=== PATIENT | male | born 1930 | race Two or more races ===

== ENCOUNTER 2016-12-19 17:30 | Inpatient (IN) | payer MEDICARE, OTHER ==
[~2016-12-19] VITALS: Ht 162.6 cm; Wt 78.0 kg
--- NOTE | ~2016-12-19 | OR ---
PATIENT'S NAME: ANAYELI CARRION [facility] AGE: 86 Y [address] ROOM: [facility] [place] [address] LOCATION: GPCU ADMIT DATE: 12/19/2016 OR/Procedure Report DISCHARGE DATE: FAMILY PHYSICIAN: John Hopkins PA-C ATTENDING PHYSICIAN: GLORIA VENTURA SURGEON: Denys Iniguez DO POTATO PANCAKE FRIER: DATE OF PROCEDURE: 12/21/2016 PREOPERATIVE DIAGNOSIS: Sinus bradycardia with second-degree heart block, Mobitz type 2 and ventricular pauses 3.8 seconds. POSTOPERATIVE DIAGNOSIS: Sinus bradycardia with second-degree heart block, Mobitz type 2 and ventricular pauses 3.8 seconds. PROCEDURES PERFORMED: Placement of dual-chamber permanent pacemaker via the left subclavian vein. REFERRING PHYSICIAN: Isidro Kitchen MD. BRIEF HISTORY: Mr. Carrion is an 86-year-old male with the above- noted diagnosis. He has been brought to the operative suite today after an informed consent was obtained for this device. Anterior chest wall was sterilely prepped and draped. After appropriate IV sedation was achieved, 1% lidocaine was used to infiltrate the left infraclavicular space and with the patient in Trendelenburg position, the subclavian vein was accessed x2 and guidewires placed under fluoroscopic guidance into the right atrium. An incision was created and a pocket was formed. Electrocautery was used for hemostasis and pocket formation. Guidewires were brought through the incision via sheath and dilator assembly, we placed our leads. We began with our right ventricular lead. It is a [employer] Lumicell MRI, model 7741, serial #[id number] placed in the right ventricular floor, sensing R-waves of 8.9 with a measured threshold of 0.4 V at 0.5 milliseconds with pacing impedance of 818 ohms. In a similar fashion, we placed our atrial lead, also a [employer] Lumicell MRI, model 7740, serial #[id number] placed in the right atrial appendage, sensing P-waves of 4.7 with a measured threshold of 0.9 V at 0.5 milliseconds with pacing impedance of 598 ohms. Each lead was then connected to the generator which is a [employer] Style[employer] Essentio, model L111, serial #[id number]. Leads and generator placed into the pocket. The patient was paced DDDR with a lower rate limit of 60 and maximal tracking rate of 120. Incision was closed in a layered fashion with 2- 0 Vicryl and 4-0 Monocryl, and a pressure dressing was applied. The patient tolerated the procedure well. PATIENT'S NAME: ANAYELI CARRION [facility] AGE: 86 Y [address] ROOM: [place] [address] [facility] AD[facility] DATE: 12/19/2016 OR/Procedure Report DISCHARGE DATE: FAMILY PHYSICIAN: John Hopkins PA-C ATTENDING PHYSICIAN: GLORIA VENTURA DO MICHELET ARAYA/baljinder /[id number] d: 12/21/16 1504 t: 12/22/16 1424, OPERATIVE SUMMARY
--- NOTE | ~2016-12-19 | CON ---
[facility] 86 Y [address] ROOM: [address] [place], [place] [address] LOCATION: GPCU ADMIT DATE: 12/19/2016 Consultation DISCHARGE DATE: FAMILY PHYSICIAN: PHYSICIAN, UNKNOWN ATTENDING PHYSICIAN: GLORIA VENTURA REFERRING PHYSICIAN: Juni Neves REQUESTING PHYSICIAN: Jess Whitman MD. REASON FOR CONSULTATION: Elevated cardiac enzymes. HISTORY OF PRESENT ILLNESS: The patient is an 86-year-old gentleman who was transferred yesterday from [place]. He presented there after undergoing hemodialysis in [place]. The patient did not feel well. He was hypotensive with systolic pressure around 80. He was experienced substernal chest pain, radiating to the back. He was also short of breath. The patient received a fluid bolus without much improvement, and once the troponin found to be elevated, he was transferred here for higher level of care. I obtained history from the patient and his granddaughter, but apparently they are not very well informed. Also read the report from the hospitalist staff and the emergency room physician in [place]. Mr. Carrion had a transcatheter aortic valve replacement in October 2015 at [place]. It is also reported that he has multiple coronary interventions, although his family could not give me any information about that. His ejection fraction is unknown. On our packer sausage and wiener here, he was found to have intermittent high-degree atrioventricular block with at least three non-conducted P-waves recorded. His daughter did report that back in September at some point, her father was also very sick and briefly unconscious and could not attend the graduation of his grandson. It is also reported in the medical record that he has atrial fibrillation and probably for this reason he is anticoagulated with warfarin. MEDICATIONS: The remaining outpatient medications include, 1. Lipitor 40 mg daily. 2. Protonix 40 mg daily. 3. Allopurinol 100 mg two tablets daily. 4. He is also on aspirin 81 mg daily and cetirizine 10 mg daily. 5. Also on omeprazole 20 mg daily and tamsulosin 0.4 mg daily. PAST SURGICAL HISTORY: Reported hernia repair. SOCIAL HISTORY: The patient is . Lives with his . Never smoked. Does not drink PATIENT'S NAME: CARRION, [facility] AGE: 86 Y [address] ROOM: [facility] [place] [address] [facility] AD[facility] DATE: 12/19/2016 Consultation DISCHARGE DATE: FAMILY PHYSICIAN: PHYSICIAN, UNKNOWN ATTENDING PHYSICIAN: GLORIA VENTURA any alcohol. FAMILY HISTORY: Noncontributory. PHYSICAL EXAMINATION: GENERAL: Pleasant elderly gentleman, alert and oriented. Able to communicate in [place]. VITAL SIGNS: His height is 5 feet 4 inches, weight is 78.6 kg, blood pressure 145/67, pulse 74. SKIN: Warm and dry. HEAD: Normocephalic and atraumatic. NECK: There are bilateral carotid bruits. HEART: Has regular first second heart sounds. LUNGS: Some rhonchi and wheezes. ABDOMEN: Obese, nontender. LOWER EXTREMITIES: Trace peripheral edema 2+, dorsalis pedis pulses. DIAGNOSTIC STUDIES: Electrocardiogram shows sinus rhythm, right bundle-branch block. Electrocardiogram yesterday at 3:40 p.m., the patient was at that point in atrial fibrillation with a rate of 118. He had converted by the time he reached [place]. Procalcitonin 0.09. CK-MB 5.3 and 1.1 troponin; repeat CK- MB 6.2 and troponin 1.6. Potassium is 4.5, BUN 58, creatinine 5.4. WBC 6.7, hemoglobin 10.3, hematocrit 29.3, and platelets 149. IMPRESSION: 1. Non-ST elevation myocardial infarction. 2. Intermitted Mobitz II heart block, symptomatic. 3. Status post TAVR. 4. History of multiple coronary interventions. 5. Dyspnea, possible heart failure. 6. End-stage renal disease. 7. History of systemic hypertension but becomes hypotensive with hemodialysis. PLAN: I will obtain the old records from [place] and I will proceed with coronary angiography and percutaneous intervention as needed. We will proceed with coronary angiography and the patient also will need a permanent dual-chamber pacemaker. Risks, benefits, and alternatives were discussed with him, his , and his granddaughter, and they are willing to proceed. Thank you for allowing me to participate in the care of Mr. Carrion. PATIENT'S NAME: ANAYELI CARRION [facility] AGE: 86 Y [address] ROOM: G6[address] [place], [place] [address] LOCATION: [facility] ADMIT DATE: 12/19/2016 Consultation DISCHARGE DATE: FAMILY PHYSICIAN: PHYSICIAN, NATE ATTENDING PHYSICIAN: GLORIA VENTURA JONATHAN BRANDT MD PE/baljinder /[id number] d: 12/20/16 1123 t: 12/21/16 0847, CONSULTATION REPORT
--- NOTE | ~2016-12-19 | CATH ---
Cardiac Diagnostic + PCI Report Demographics Patient Name MURALI Chopra Gender Male Date of 1930 Age 86 year(s) Patient Number [id number] Date of Study 12/20/2016 Visit Number [id number] Room Number G6[address] [place] [id number] Ht 162.56 cm Wt 78.47 kg Referring Efstratiou Primary Physician Physician Jeremy Aguilar MD Performing Efstratiou Secondary Physician Physician Jeremy Aguilar MD Diagnostic Efstratiou Assisting Physician Physician Jeremy Aguilar MD Interventional Efstratiou Physician Mother Superior Physician Jeremy Aguilar MD Findings and Conclusions Diagnostic Findings and Conclusion Previous proximal LAD stent is patent Severe stenosis in OM2 Moderate diffuse 3 vessel CAD Diagnostic Recommendations PCI to OM2 Interventional Findings and Conclusion Successful ROSIO to OM2 Interventional Recommendations Procedure Description The patient was brought to the diagnostic cardiac catheterization-EP laboratory in the fasting, non-sedated state. Informed consent was obtained in the written and verbal form after the risks and benefits were explained. The patient had no further questions and agreed to proceed. The planned puncture-incision site(s) were shaved and prepped with ChloraPrep and draped in the usual sterile manner. Conscious sedation, supplemental oxygen, and pain control medications were delivered by a registered nurse under physician guidance. Surface ECG rhythm, blood pressure measurement, and pulse oximetry were monitored throughout the procedure. Arterial access. The access site was infiltrated with lidocaine. The vessel was entered with the Seldinger technique. A sheath was advanced into the vessel and used for catheter placement. Selective left coronary angiography. A catheter was advanced into the left coronary vessel ostium under Fluoroscopic guidance. Contrast was injected by hand. Images were obtained in multiple projections. Selective right coronary angiography. A catheter was advanced into the right coronary vessel ostium under fluoroscopic guidance. Contrast was injected by hand. Images were obtained in multiple projections. Stent Placement: A guiding catheter was used to intubate the vessel. A 0.14 wire was used to cross the lesion. A Drug Eluting Stent was placed. Post placement angiograms were performed. Arterial artery hemostasis was achieved. The patient was transferred to a regular nursing floor via cart accompanied by a nurse. The patient left the laboratory in stable condition. Diagnostic Cath Status: Urgent Interventional Cath Status: Urgent Procedure Procedure Type Diagnostic procedure:Angiography:, Coronary Angios w/LHC PCI procedure:Drug Eluting Coronary Stent:, OM Indications: NSTEMI. The procedure was explained in detail to the patient. Risks, complications and alternative treatments were reviewed. Written consent was obtained. Medications Reviewed with Patient prior to Procedure. Angiographic Findings Dominance: Right Cardiac Arteries and Lesion Findings LMCA: Abnormal.20% distal LAD: Normal (0% Stenosis).patent proximal stentThere is a previous stent on Prox LAD. LCx: Abnormal.30% ostial, 85% OM2 ostial Lesion on 2nd Ob [place]% stenosis reduced to 10%. Pre procedure ADEN III flow was noted. Post Procedure ADEN III flow was present. The guidewire cross was successful.The lesion was diagnosed as a high risk lesion.Culprit lesion. Devices used - Whisper Wire .014 x 190. Number of passes: 1. - Emerge Balloon 2.0 x 12. 1 inflation(s) - NC Emerge Balloon 2.25 x 8. 1 inflation(s) to a max pressure of: 20 melvin. - NC Emerge Balloon 2.5 x 8. 2 inflation(s) to a max pressure of: 16 melvin. - Promus Premier 2.5 x 12 Stent. 1 inflation(s) to a max pressure of: 11 melvin. RCA: Abnormal.50% proximal, 30% distal PL 40% ostial PDA 30% distal Coronary Tree Procedure Data Procedure Date Date: 12/20/2016Start: 03:19 PMEnd: 04:51 PM Entry Locations - Retrograde Percutaneous access was performed through the Right Femoral artery (Primary location). A 6 Fr sheath was inserted. Hemostasis was successfully obtained using Angio-Seal STS PLUS ([place]). Closure Comments: by Dr. Kitchen. Procedure Medications Order and Administration + + + + + !Time !Medication !Dosage !Route ! + + + + 12/20/2016 03:19 PM !Oxygen !2 l/min !NC ! + + + + 12/20/2016 03:19 PM !Fentanyl !25 mcg ! ! + + + + 12/20/2016 03:35 PM !Heparin (ACC_3) !7000 units !I.V. bolus ! + + + + 12/20/2016 04:18 PM !Nitroglycerin !200 mcg !I.C. ! + + + + 12/20/2016 04:24 PM !Plavix (ACC_8) !600 mg !P.O. ! + + + + + Devices Used - A6 Fr. BS JR 4 Diag. Catheterwas used for:Right coronary angiography. - A6 Fr. BS JL 3.5 Diag. Catheterwas used for:Left coronary angiography. - A6 Fr. XB 3.5 Guide Catheterwas used for:OM Intervention. - A6 Fr. Guidlinerwas used for:OM Intervention. Contrast Material - Isovue [id number] ml Fluoroscopy Time: Diagnostic: 18:24 minutes. Total: 18:24 minutes. Fluoroscopy Dose: Diagnostic: 2131 mGy. Total: 2131 mGy. Estimated Blood Loss: 5 ml. Additional [facility] PCI Information PCI Indication:PCI for high risk Non-STEMI or unstable angina. Medical History Allergies - Other:(Cipro). - Other:(quinolones, coprofloxacin). Risk Factors The patient risk factors include:prior PCI;hypercholesterolemia, hypertension, family history of premature CAD, prior valve surgery/procedure, dyslipidemia, former tobacco use and prior PR . Admission Data Admission Date: 12/19/2016 Admission Time: 07:27 PM Arrival Date: 12/19/2016 Arrival Time: 12:00 AM Admit Source: Transfer acute care facility Insurance Payors: Medicare. Admission Medications + +------+------+ + + + + !Medication!Dosage!Times !Last !Last !Administered !Comments ! ! ! !Per !Delivery !Delivery ! ! ! ! ! !Day !Date !Time ! ! ! + +------+------+ + + + + !Aspirin ! ! !12/20/2016 !12:00 AM !Yes ! ! !(any) ! ! ! ! ! ! ! + +------+------+ + + + + !Statin ! ! !12/20/2016 !12:00 AM !Yes ! ! !(any) ! ! ! ! ! ! ! + +------+------+ + + + + !Warfarin ! ! !12/19/2016 !12:00 AM ! ! ! + +------+------+ + + + + Clinical Evaluation Leading to Procedure Diagnosed on 12/20/2016 09:00 AM. - The patient's CAD presentation was assessed as: Non-STEMI. Snapshots Hemodynamics Condition: Rest O2 Consumption: Estimated: 206.67Heart Rate: 67 bpm Pressures (mmHg) +-----+ + !Site !Pressure ! +-----+ + !AO !145/56 (92) ! +-----+ + !AO !138/86 (106) ! +-----+ + !AO !120/53 (74) ! +-----+ + Shunts Oxygen Values O2 Capacity 140.08 O2 Consumption 206.67 Signatures dtt: Isidro Kitchen dtd: 12/20/16 1519 Physician Self Edit
--- NOTE | ~2016-12-19 | DS ---
[facility]GE[facility] 86 Y [address] ROOM: [place] [address] LOCATION: GPCU ADMIT DATE: 12/19/2016 Discharge Summary DISCHARGE DATE: 12/22/2016 FAMILY PHYSICIAN: John Hopkins PA-C ATTENDING PHYSICIAN: Fuentes Hustno ADMITTING DIAGNOSIS: Zyr-YF-qcqsamr elevation myocardial infarction. DISCHARGE DIAGNOSES: 1. Wlg-FP-lxrsoad elevation myocardial infarction and Mobitz type 2 heart block, status post pacemaker placement. 2. End-stage renal disease. 3. Diastolic congestive heart failure. 4. Hypertension. 5. Paroxysmal atrial fibrillation. PROCEDURE: 1. Coronary angiogram and stent placement on 12/21/2016. 2. Pacemaker placement on 12/21/2016. CONSULTATIONS: Vascular Surgery for pacemaker placement, Nephrology for dialysis, and Cardiology for NSTEMI. HISTORY OF PRESENT ILLNESS: The patient is an 86-year-old gentleman with complicated past medical history of coronary artery disease, status post multiple interventions, last one done in September 2015; history of end-stage renal disease, on Monday, Monday, and Monday; and aortic stenosis, status post TAVR, on oral anticoagulation with Coumadin for paroxysmal atrial fibrillation, who presents here with typical chest pain from [place] during dialysis. HOSPITAL COURSE: The patient's initial troponin was noted to be elevated. Troponin was trended. The patient was started on heparin drip and was seen by a manufacturing project engineer. The patient had a coronary angiogram done which showed severe stenosis in the OM2. The patient had drug-eluting stent placed in OM2 without complication. The patient was started on dual antiplatelets. The patient was also noted to have a heart block with Mobitz type 2 with greater than 3 seconds. The patient was seen by Dr. Iniguez, vascular surgeon, and had pacemaker placement. The patient tolerated the procedure well. The patient was also seen by Nephrology during his stay for his dialysis. CONDITION: Stable. DISPOSITION: Home. [facility] AGE: 86 Y [address] ROOM: [place] [address] LOCATION: GPCU ADMIT DATE: 12/19/2016 Discharge Summary DISCHARGE DATE: 12/22/2016 FAMILY PHYSICIAN: John Hopkins PA-C ATTENDING PHYSICIAN: Fuentes Huston DISCHARGE MEDICATIONS: Please see MAR. DISCHARGE INSTRUCTIONS: To follow up with INR level with primary care physician. To keep INR between 2-3. FOLLOWUP: Follow up with manufacturing project engineer for followup for NSTEMI. Continue dual anti-platelet of aspirin and ticagrelor. Follow up with vascular surgeon. He to follow up with primary care physician and Nephrology for dialysis. Greater than 30 minutes was spent on discharge planning. The patient to be discharged home with home healthcare. MD LORNA GRAJEDA/baljinder /[id number] d: 12/23/167 t: 12/26/16 1100, DISCHARGE SUMMARY
--- NOTE | ~2016-12-19 | CON ---
[facility] 86 Y [address] ROOM: [place] [address] LOCATION: GPCU ADMIT DATE: 12/19/2016 Consultation DISCHARGE DATE: FAMILY PHYSICIAN: John Hopkins PA-C ATTENDING PHYSICIAN: GLORIA VENTURA DATE OF CONSULTATION: 12/20/2016 REFERRING PHYSICIAN: Juni Neves This is a [facility] Nephrology consultation. REASON FOR CONSULTATION: End-stage renal disease, on hemodialysis therapy, NSTEMI. HISTORY OF PRESENT ILLNESS: This is an 86-year-old male patient, who was transferred from [place], complaining of chest pain. The patient reportedly went to hemodialysis and subsequently began to feel ill afterwards. His blood pressures were noted to be lower than 80 systolically. The patient experienced substernal chest pain radiating to his back. The patient was found to have a non-ST elevation SD and was transferred to [facility] for higher level of care. The patient does have a longstanding history of end-stage renal disease and has been on hemodialysis on Monday, Monday, Monday in [place]. His does usually transport him from [place] 3 days a week. Due to the patient's history of end-stage renal disease, Dr. Neves has been asked to consult on the patient and manage his dialysis while he is hospitalized. PAST MEDICAL HISTORY: As listed above including, 1. Coronary artery disease. 2. Aortic valve stenosis, status post TAVR. 3. Hyperlipidemia. 4. Gout. 5. Constipation. 6. Allergic rhinitis. 7. GERD. 8. BPH. PAST SURGICAL HISTORY: 1. Reported hernia repair. 2. TAVR. ALLERGIES: PAT[facility]: 86 Y [address] ROOM: [place] [address] LOCATION: GPCU ADMIT DATE: 12/19/2016 Consultation DISCHARGE DATE: FAMILY PHYSICIAN: John Hopkins PA-C ATTENDING PHYSICIAN: GLORIA VENTURA CIPROFLOXACIN. CURRENT HOME MEDICATIONS: Include, 1. Warfarin 5 mg 5 days a week and 2.5 mg 2 days a week. 2. Lipitor 40 mg daily. 3. Allopurinol 200 mg daily. 4. Hydrocortisone/polymyxin/neomycin 3 drops otic 4 times a day as needed for drainage. 5. Lysine 500 mg twice a day. 6. Fiber laxative 500 mg daily p.r.n. constipation. 7. MiraLAX 17 g p.o. daily p.r.n. constipation. 8. Senexon-S one tablet p.o. b.i.d. p.r.n. constipation. 9. Zofran 4 mg sublingually q.8 hours p.r.n. nausea. 10. Aspirin 81 mg daily. 11. Zyrtec 10 mg daily. 12. Protonix 40 mg daily. 13. Flomax 0.4 mg p.o. daily. SOCIAL HISTORY: The patient does live in [place]. Remote history of smoking. No illicit drug use or alcohol abuse. FAMILY HISTORY: Reviewed and is noncontributory. There is no history of renal disease or dialysis. REVIEW OF SYSTEMS: GENERAL: Denies any fever, chills, or night sweats. HEENT: Eyes: No double vision, blurred vision. Nose: No epistaxis or rhinorrhea. Mouth: No gingival bleeding. Throat: No sore throat, hoarseness, or cough. RESPIRATORY: Denies wheezing or hemoptysis. CARDIOVASCULAR: See HPI. GASTROINTESTINAL: Denies nausea, vomiting, or diarrhea. MUSCULOSKELETAL: Denies new arthralgias or myalgias. NEUROLOGICAL: Denies numbness, tingling of upper and lower extremities. Denies balance or gait disturbances. IMMUNOLOGICAL: Denies recent infections. HEMATOLOGIC: No bruising or easy bleeding on Coumadin therapy. PSYCHIATRIC: No history of depression or anxiety. LABORATORY DATA: Sodium 139, potassium 4.5, chloride is 104, CO2 27, BUN 50, creatinine 5.4, glucose is 98. PATIENT'S NAME: ANAYELI CARRION [facility] AGE: 86 Y [address] ROOM: [address] [place], [place] [address] [facility] AD[facility] DATE: 12/19/2016 Consultation DISCHARGE DATE: FAMILY PHYSICIAN: John Hopkins PA-C ATTENDING PHYSICIAN: GLORIA VENTURA EKG showed atrial fibrillation with RVR with right bundle-branch block and ST depressions in the lateral leads. This is obtained from outpatient facility. PHYSICAL EXAMINATION: VITAL SIGNS: Blood pressure 145/67, pulse 74, respirations 20, temperature is 97.7. GENERAL: On exam, this is an alert and oriented, male, who appears his approximate stated age and is in no acute distress. HEENT: Head: Normocephalic and atraumatic. Eyes: Pupils equal, round, and reactive to light and accommodation. EOMs intact. Nose: Midline. Mouth: No gingival bleeding. Throat: Without lymphadenopathy, carotid bruits, or JVD. LUNGS: Sounds clear to auscultation anteriorly and posteriorly. CARDIOVASCULAR: Regular rate and rhythm. Unable to appreciate any murmurs, rubs, or thrills. ABDOMEN: Soft, nontender, and nondistended. Bowel sounds positive. EXTREMITIES: Show left upper extremity AV fistula. Positive for bruit, positive for thrill. Extremities show no signs of peripheral edema, clubbing, or cyanosis. ASSESSMENT AND PLAN: 1. End-stage renal disease, on hemodialysis on Monday, Monday, and Monday. We will obtain outpatient clinical record and provide hemodialysis accordingly. 2. Non ST-elevation myocardial infarction. The patient is planned to go to the catheterization with Dr. Kitchen at noon today. 3. Complete heart block. Further recommendations per Dr. Kitchen. NICHO ROSALES DNP, [employer]PORATE SECURITIES RESEARCH ANALYST FOR MD DIAN CANELA/modl /[id number] d: 12/21/16 1059 t: 12/26/16 0949, CONSULTATION REPORT
--- NOTE | ~2016-12-19 | ECHO ---
Transthoracic Echocardiography Report (TTE) Demographics Patient Name ANAYELI CARRION Date of Study 12/20/2016 T Patient Number [id number] Visit Number [id number] Date of 1930 Room Number G6334 Gender Male Number Age 86 year(s) [facility] Research Recruiter Larisa Melendez RDCS, Physician [place] RVT, RDMS, PROGRAM REP Bridgett Jaffe MD Physician Interpreting Imtiaz Aguilar [employer] Container Winding Operator Physician MD Supervising Ordering MD/MLP Physician Nurse Stress Steam Plant Records Clerk Conclusions Contractility Score Summary Normal Left Ventricular contractility was noted. Summary The estimated left ventricular ejection fraction is 70-75%. The left ventricle is normal in size . Severe concentric left ventricular hypertrophy. Diastolic function cannot be adequately assessed due to patients inability to perform the Valsalva maneuver. Probably pseudonormal pattern is present. The endocardium is suboptimally seen because it is off axis and the patient's body habitus. Even with Definity contrast apical windows are poorly seen. E/e' ratio shows markedly elevated left ventricular filling pressures. The left atrium is severely dilated by LA volume index measurement. Mild-moderate mitral regurgitation by color Doppler. Moderate mitral annular calcification. Moderate to severe mitral valve stenosis. The mean gradient is 10 mmHg. Severe calcification of the mitral valve. The patient has had a transcatheter aortic valve replacement with a balloon expandable prosthesis. The prosthetic aortic valve appears to function normally with no paravalvular leak. It is well seated and has velocities in the normal range. Moderate tricuspid regurgitation . There is moderate pulmonary hypertension. The pulmonary pressure (RVSP) is 58 mmHg. Procedure Type of Study TTE procedure:2D Echocardiogram, M-Mode, Doppler , Color Doppler. Procedure Date Date: 12/20/2016 Start: 07:22 AM Study Location: Inpatient Portable Technical Quality: Poor visualization due to lung interference. Additional Indications:Sepsis, s/p TAVR, Mitral valve stenosis. Appropriate Use Criteria: 9 Patient Status: Routine Contrast Medium: Definity. Amount - 2.5 ml HR: 62 bpm BP: 145/67 mmHg Allergies - Other:(Cipro). - Other:(quinolones, coprofloxacin). M-Mode/2D Measurements LV Diastolic Dimension: 3.57 cm LV Systolic Dimension: 1.84 cm LV Septum Diastolic: 1.83 cm LV PW Diastolic: 1.7 cm AO Root Dimension: 3 cm Cardiac Output: 5.08 l/min LA Dimension: 4.8 cm LVOT: 1.8 cm LVOT VTI: 32.2 cm RV Base: 3.8 cm LV Stroke volume: 81.9 ml RV Length: 7.5 cm Doppler Measurements AV Peak Velocity: 2 m/s MV Peak E-Wave: 2.18 m/s AV Peak Gradient: 16 mmHg MV Peak A-Wave: 1.8 m/s AV Mean Gradient: 8 mmHg MV E/A Ratio: 1.21 LVOT Peak Velocity: 1.2 m/s MV P1/2t: 149 msec TR Velocity:3.54 m/s MV Deceleration Time: 423 msec Estimated RAP:8 mmHg Estimated RVSP: 58 mmHg Estimated PASP: 58.13 mmHg E' Septal Velocity: 0.03 m/s A' Septal Velocity: 0.04 m/s E' Lateral Velocity: 0.04 m/s A' Lateral Velocity: 0.04 m/s Findings Left Ventricle The left ventricle is normal in size . Severe concentric left ventricular hypertrophy. Diastolic function cannot be adequately assessed due to patients inability to perform the Valsalva maneuver. Probably pseudonormal pattern is present. The endocardium is suboptimally seen because it is off axis and the patient's body habitus. Even with Definity contrast apical windows are poorly seen. E/e' ratio shows markedly elevated left ventricular filling pressures. Right Ventricle Normal right ventricle structure and function. Left Atrium The left atrium is severely dilated by LA volume index measurement. Right Atrium The right atrium is mildly dilated. IVC imaging is consistent with normal RA pressures. Mitral Valve Mild-moderate mitral regurgitation by color Doppler. Moderate mitral annular calcification. Moderate to severe mitral valve stenosis. The mean gradient is 10 mmHg. Severe calcification of the mitral valve. Aortic Valve The patient has had a transcatheter aortic valve replacement with a balloon expandable prosthesis. The prosthetic aortic valve appears to function normally with no paravalvular leak. It is well seated and has velocities in the normal range. Tricuspid Valve Moderate tricuspid regurgitation . There is moderate pulmonary hypertension. The pulmonary pressure (RVSP) is 58 mmHg. Pulmonic Valve Trivial pulmonic valve regurgitation by color Doppler. Normal pulmonic valve structure and function. Pericardial Effusion No evidence of pericardial effusion. Miscellaneous Visualized portions of the aortic root and ascending aorta appear normal in size. Pleural Effusion No evidence of pleural effusion. Signature dtt: Isidro Kitchen dtd: 12/20/16 0722 Physician Self Edit
--- NOTE | ~2016-12-19 | HP ---
PATIENT'S NAME: ANAYELI CARRION [facility] AGE: 86 Y [address] ROOM: [address] [address] LOCATION: [facility] ADMIT DATE: 12/19/2016 History & Physical DISCHARGE DATE: FAMILY PHYSICIAN: PHYSICIAN, UNKNOWN ATTENDING PHYSICIAN: GLORIA VENTURA DATE OF SERVICE: CHIEF COMPLAINT: Chest pressure. HISTORY OF PRESENT ILLNESS: An 86-year-old gentleman with a complicated past medical history of coronary artery disease status post multiple interventions, last one done in September of 2015; history of end-stage renal disease, on Monday, Monday, and Monday dialysis; and aortic stenosis status post TAVR, on oral anticoagulation with Coumadin. He had his dialysis done today in [place] and came home and he felt dizzy as well as he felt chest pressure which was located in the center of his chest, 8/10, and radiated to the neck as well as to the back associated with dizziness and some shortness of breath. No alleviating or aggravating factors. He was taken to the local emergency department where an EKG was done, which did show atrial fibrillation with a rapid ventricular rate, right bundle branch block as well as ST depressions in the lateral leads. He was transferred here for further medical care. On my encounter, he is an 86-year- old, hard of hearing gentleman saying that he is feeling better now. He is saying that he does not have any chest pressure at this movement. He denied any dizziness at this point. No shortness of breath or palpitations reported at this point. He says that he thinks that they took off too much fluid and whenever they take too much of fluid, he feels the same way. On further questioning, he did endorse that the last time he had the heart attack, he felt the same way as well. Of note, 1.5 L of fluid was taken off on this dialysis session. Further inquiry reveals that he does not make any urine. He will have a regular bowel habit. He does not complain of any PND, orthopnea, or leg swelling. ALLERGIES: THE PATIENT IS ALLERGIC TO CIPROFLOXACIN. PAST MEDICAL HISTORY: 1. End-stage renal disease, on Monday, Monday, and Monday hemodialysis. 2. Coronary artery disease with multiple stenting done in the past. 3. Hypertension. 4. Anemia of chronic disease. 5. Syncope. 6. Aortic stenosis status post TAVR. PATIENT'S NAME: ANAYELI CARRION [facility] AGE: 86 Y [address] ROOM: [id number] [place], [place] [address] LOCATION: [facility] ADMIT DATE: 12/19/2016 History & Physical DISCHARGE DATE: FAMILY PHYSICIAN: PHYSICIAN, UNKNOWN ATTENDING PHYSICIAN: GLORIA VENTURA MEDICATIONS: Being reconciled right now. SOCIAL HISTORY: Lives in [place]. Ex-smoker. FAMILY HISTORY: Reviewed and was negative for the current problem. PHYSICAL EXAMINATION: VITAL SIGNS: He was noted to have low blood pressure at the outside emergency department. He was given normal saline, and now on presentation to our hospital, his blood pressure is about 120/60, heart rate is 72 and regular, saturating 95% on room air, and respiratory rate of 16. GENERAL: In no acute distress. Alert and oriented x3. HEENT: Head; atraumatic and normocephalic. Eyes; nonicteric. No pallor. Oropharynx; dry mucous membranes. CARDIOVASCULAR: S1 and S2. No murmurs, gallops, or rubs. ABDOMEN: Soft, nontender, nondistended. Bowel sounds are present. EXTREMITIES: Left upper extremity reveals fistula. No clubbing, cyanosis, or edema noted. PSYCHIATRIC: Normal affect, mood, and speech. MUSCULOSKELETAL: No muscle tenderness or joint swelling noted. SKIN: No blemishes or scar yoo or dryness noted. ENDOCRINE: No thyromegaly or cushingoid features noted. LABORATORY DATA: Lab work from the outside facility revealed EKG showing atrial fibrillation with a rapid ventricular rate, right bundle branch block, and ST depressions in the lateral leads. Currently, on the telemetry, he is normal sinus rhythm with a right bundle branch block. First set of troponin have been negative. His CBC was unremarkable with a hemoglobin of 12.0. His CMS showed a potassium of 3.1, BUN 37, creatinine of 3.7, and glucose was 116. INR was found to be 1.1, though he is on anticoagulation with Coumadin. Chest x-ray has been unremarkable at the outside facility. ASSESSMENT AND PLAN: 1. Acute coronary syndrome. 2. Atrial fibrillation with a rapid ventricular rate. Spontaneously converted back to sinus rhythm. 3. End-stage renal disease. 4. Hypokalemia. 5. Aortic stenosis status post transcatheter aortic-valve replacement. 6. Presyncope. PATIENT'S NAME: ANAYELI CARRION [facility] AGE: 86 Y [address] ROOM: [place] [address] LOCATION: [facility] ADMIT DATE: 12/19/2016 History & Physical DISCHARGE DATE: FAMILY PHYSICIAN: PHYSICIAN, UNKNOWN ATTENDING PHYSICIAN: GLORIA VENTURA Plan: He has already received 500 IV bolus at the outside facility with improvement in the blood pressure as well as resolution of the atrial fibrillation. His symptoms are concerning for acute coronary syndrome because of the chest pressure and atrial fibrillation. Not sure if the atrial fibrillation caused the symptoms or any ischemic etiologies causing the recurrence of the atrial fibrillation. We will admit this patient and start him on acute coronary syndrome protocol including the heparin drip. On top, he does have aortic valve, and I am not sure it is mechanical or a bioprosthetic, and we will obtain records from the [facility]. In the meanwhile, we will replace his potassium due in q.6 hours. Troponins, get an echocardiography, and a 12-lead EKG as well. When discussed with the family and himself, patient is a DNR/DNI. He does not want any invasive procedures to be done on him including heart catheterization. When asked further, they are okay to do an echocardiography of the heart, but nothing invasive. 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 Just to rule out sepsis, we will obtain procalcitonin and lactate now though my suspicions of sepsis are very low at this point. DNR/DNI. Pharmacy to dose Coumadin and in the interim, we will continue heparin drip. Further management will depend on his progress in the hospital. MD ANGIE OCHOA/baljinder /[id number] D: [id number] T: [id number] HISTORY & PHYSICAL
[2016-12-19] MEDS ORDERED: COUMADIN **IA2.5 MG PO (21:44)
[2016-12-19] MEDS ORDERED: COUMADIN ** IA5 MG PO (21:44)
[2016-12-19] MEDS ORDERED: LIPITOR40 MG PO (21:45)
[2016-12-19] MEDS ORDERED: ALLOPURINOL100 MG PO (21:45)
[2016-12-19] MEDS ORDERED: CORTISPORIN OTI10 ML OTIC (21:48)
[2016-12-19] MEDS ORDERED: LYSINE500 MG PO (21:48)
[2016-12-19] MEDS ORDERED: FIBER LAXATIVE500 MG PO (21:49)
[2016-12-19] MEDS ORDERED: SENEXON-S TABL1 EACH PO (22:01)
[2016-12-19] MEDS ORDERED: MIRALAX17 GM PO (22:01)
[2016-12-19] MEDS ORDERED: ZOFRAN ODT 4 MG4 MG SL (22:02)
[2016-12-19] MEDS ORDERED: ASPIRIN LO-DOSE81 MG PO (22:03)
[2016-12-19] MEDS ORDERED: ZYRTEC10 MG PO (22:04)
[2016-12-19] MEDS ORDERED: PROTONIX40 MG PO (22:06)
[2016-12-19] MEDS ORDERED: FLOMAX0.4 MG PO (22:07)
[2016-12-20 04:34] LABS: BASOPHIL % 0.3 %; EOSINOPHIL # 0.4 K/uL (0.0-0.5); EOSINOPHIL % 5.2 %; HEMATOCRIT 29.3 % (33.0-50.0); HEMOGLOBIN 10.3 g/dL (11.0-16.0); IMMATURE GRANULOCYTE % 0.1 %; LYMPHOCYTE # 1.2 K/uL (0.8-4.0); LYMPHOCYTE % 17.5 %; MCH 33.6 pg (27.0-34.0); MCHC 35.2 gm/dL (32.0-36.5); MCV 95.4 fl (83.0-98.0); MONOCYTE # 0.6 K/uL (0.0-1.0); MONOCYTE % 9.5 %; MPV 10.7 fl (9.4-12.4); NEUTROPHIL # (ANC) 4.5 K/uL (1.4-9.0); NEUTROPHIL % 67.4 %; NRBC % 0 /100WBC (0-0.00); PLATELET COUNT 149 K/uL (150-450); RBC 3.07 M/uL (3.50-5.50); RDW-CV 12.5 % (11.9-14.6); WBC 6.7 K/uL (4.0-11.0)
[2016-12-20 04:53] LABS: ALBUMIN 3.1 gm/dL (3.5-5.0); CALCIUM 8.4 mg/dL (8.5-10.5); TOTAL BILIRUBIN 0.8 mg/dL (0.0-1.5); TOTAL PROTEIN 6.7 g/dL (6.0-8.4)
[2016-12-20 04:58] LABS: ANION GAP 12.5 (10.0-19.0); CREATININE 5.4 mg/dL (0.6-1.3)
[2016-12-20 04:59] LABS: POTASSIUM 4.5 mMol/L (3.7-5.1)
[2016-12-20 09:40] LABS: INR - (THERAPEUTIC) 1.24 (0.92-1.07)
[2016-12-21 05:33] LABS: INR - (THERAPEUTIC) 1.13 (0.92-1.07); PROTIME 11.9 SECONDS (9.8-11.4)
[2016-12-21 05:45] LABS: ALBUMIN 3.6 gm/dL (3.5-5.0); ANION GAP 13.4 (10.0-19.0); CALCIUM 8.5 mg/dL (8.5-10.5); PHOSPHORUS 3.4 mg/dL (2.5-4.9); POTASSIUM 4.4 mMol/L (3.7-5.1); TOTAL BILIRUBIN 0.7 mg/dL (0.0-1.5); TOTAL PROTEIN 7.6 g/dL (6.0-8.4)
[2016-12-21 05:49] LABS: CREATININE 6.8 mg/dL (0.6-1.3)
[2016-12-22 07:13] LABS: INR - (THERAPEUTIC) 1.18 (0.92-1.07); PROTIME 12.4 SECONDS (9.8-11.4)
[2016-12-22] MEDS ORDERED: PLAVIX75 MG PO (14:39)
[2016-12-22] MEDS ORDERED: LOPRESSOR25 MG PO (14:40)
== END 2016-12-22 16:10 | disposition disaster alternative care site (69) | DRG 242 ==
LOC: GPCU 19:27 → GICU 19:27 → GPCU 12-20 04:36
PROVIDERS: Internal Medicine; Internal Medicine Cardiovascular Disease; ADMIT Internal Medicine
DX: I24.9 Acute ischemic heart disease, unspecified (principal); I21.4 Non-ST elevation (NSTEMI) myocardial infarction; I50.33 Acute on chronic diastolic (congestive) heart failure; N18.6 End stage renal disease; I44.1 Atrioventricular block, second degree; I13.11 Hypertensive heart and chronic kidney disease without heart failure, with stage 5 chronic kidney disease, or end stage renal disease; I48.0 Paroxysmal atrial fibrillation; E87.6 Hypokalemia; Z99.2 Dependence on renal dialysis; I95.1 Orthostatic hypotension; Z66 Do not resuscitate; Z79.01 Long term (current) use of anticoagulants
CPT/HCPCS: C1725; C1760; C1769; C1785; C1874; C1887; C1894; C1898; C9600; J0690; J1644; J2270; J2405; J2765; J3010; J3480; J7030; J7050; Q0162